=== PATIENT | male | born 1975 | race Caucasian/White ===

== ENCOUNTER 2024-10-14 22:04 | Emergency (ER) | payer OTHER ==
[~2024-10-14] VITALS: Ht 170.2 cm; Wt 87.0 kg
[2024-10-14 22:38] VITALS: TEMP 36.7; O2SAT 99
[2024-10-14 23:11] LABS: BASOPHILS % 2.3 % (0.0-2.0); EOSINOPHILS % 2.9 % (0.0-5.0); HEMATOCRIT. 42.4 % (42.0-52.0); HEMOGLOBIN. 14.4 g/dL (14.0-18.0); LYMPHOCYTES % 49.4 % (20.0-50.0); MEAN PLATELET VOLUME 7.9 fl (7.4-10.4); MONOCYTES % 8.6 % (2.0-8.0); NEUTROPHILS % 36.8 % (40.0-76.0); PLATELET 194 x1000/uL (130-400); RED BLOOD CELL COUNT 4.69 mill/uL (4.7-6.1); RED CELL DISTRIBUTION WIDTH 14.2 % (11.6-14.6)
[2024-10-14 23:25] LABS: CREATININE 0.9 mg/dL (0.6-1.3); ETHANOL BLOOD 270 mg/dL (<10); UREA NITROGEN BLOOD 10 mg/dL (9-23)
[2024-10-14 23:26] LABS: ASPARTATE AMINOTRANSFERASE 70 IU/L (<34); TROPONIN I HIGH SENSITIVITY < 4 ng/L (3.0-53)
[2024-10-14 23:27] LABS: BILIRUBIN DIRECT 0.2 mg/dL (<=3.0); BILIRUBIN TOTAL 0.4 mg/dL (0.1-1.0); PROTEIN TOTAL 6.6 g/dL (6.0-8.3)
[2024-10-14 23:37] LABS: INR 0.9
[2024-10-15] MEDS: CHLORDIAZEPOXIDE 25MG CAPSULE PO ONE (00:13)
[2024-10-15 00:35] LABS: CLARITY URINE CLEAR (CLEAR); COLOR URINE YELLOW (YELLOW); GLUCOSE URINE NEGATIVE (NEGATIVE); KETONES URINE NEGATIVE (NEGATIVE); LEUKOCYTE ESTERASE URINE NEGATIVE (NEGATIVE); NITRITE URINE NEGATIVE (NEGATIVE); OCCULT BLOOD URINE NEGATIVE (NEGATIVE); PH URINE 6.0 (4.5-8.0); PROTEIN URINE NEGATIVE (NEGATIVE); SPECIFIC GRAVITY URINE 1.005 (1.005-1.030); UROBILINOGEN URINE 0.2 E.U./dL (0.2-1.0)
[2024-10-15 00:46] LABS: *AMPHETAMINES SCREEN URINE NEGATIVE (NEGATIVE); *BENZODIAZEPINES SCREEN URINE NEGATIVE (NEGATIVE)
[2024-10-15 00:47] LABS: *BARBITURATES SCREEN URINE NEGATIVE (NEGATIVE); *COCAINE SCREEN URINE NEGATIVE (NEGATIVE); CANNABINOID URINE SCREEN NEGATIVE (NEGATIVE); ECSTASY MDMA SCREEN URINE NEGATIVE (NEGATIVE); METHADONE URINE SCREEN NEGATIVE (NEGATIVE); OPIATES URINE SCREEN NEGATIVE (NEGATIVE); PHENCYCLIDINE URINE SCREEN NEGATIVE (NEGATIVE)
[2024-10-15 01:33] VITALS: BP 123/69; PULSE 79; RESP 12; O2SAT 97
== END 2024-10-15 01:56 | disposition home or self-care (01) ==
LOC: ER 22:04
DX: F10.229 Alcohol dependence with intoxication, unspecified (principal); F17.200 Nicotine dependence, unspecified, uncomplicated; Z79.899 Other long term (current) drug therapy; Y90.9 Presence of alcohol in blood, level not specified
CPT/HCPCS: 80076; 80048; 80320; 82140; 83690; 83735; 85025; 85610; 85730; 86850; 86900; 86901; 84484; 36415; 99283; 80305; 81003; Z7610 ×3; A4606; G0480

== ENCOUNTER 2024-10-28 19:06 | Emergency (ER) | payer OTHER ==
[~2024-10-28] VITALS: Ht 170.2 cm; Wt 86.0 kg
[2024-10-28 19:09] VITALS: O2SAT 99
[2024-10-28] MEDS: HYDROCODONE/ACETAMINOPHEN 5/325MG TABLET PO ONE (20:07)
[2024-10-28 20:34] LABS: BASOPHILS % 0.9 % (0.0-2.0); EOSINOPHILS % 0.7 % (0.0-5.0); HEMATOCRIT. 41.9 % (42.0-52.0); HEMOGLOBIN. 14.4 g/dL (14.0-18.0); LYMPHOCYTES % 19.6 % (20.0-50.0); MEAN PLATELET VOLUME 7.6 fl (7.4-10.4); MONOCYTES % 11.7 % (2.0-8.0); NEUTROPHILS % 67.1 % (40.0-76.0); PLATELET 205 x1000/uL (130-400); RED BLOOD CELL COUNT 4.61 mill/uL (4.7-6.1); RED CELL DISTRIBUTION WIDTH 14.8 % (11.6-14.6)
[2024-10-28 20:48] LABS: CREATININE 1.0 mg/dL (0.6-1.3); UREA NITROGEN BLOOD 19 mg/dL (9-23)
[2024-10-28 20:50] LABS: ASPARTATE AMINOTRANSFERASE 83 IU/L (<34); BILIRUBIN DIRECT 0.1 mg/dL (<=3.0); BILIRUBIN TOTAL 0.6 mg/dL (0.1-1.0); PROTEIN TOTAL 6.6 g/dL (6.0-8.3)
[2024-10-28] MEDS: IOHEXOL-300 100 ML BOTTLE ONE (23:21)
[2024-10-28] MEDS ORDERED: IBUP-2030 MT (23:38)
[2024-10-29 00:34] VITALS: BP 135/85; PULSE 65; RESP 15; TEMP 36.8; O2SAT 96
== END 2024-10-29 00:34 | disposition home or self-care (01) ==
LOC: ER 19:06
DX: R10.9 Unspecified abdominal pain (principal); Y08.89XA Assault by other specified means, initial encounter; Y93.89 Activity, other specified; Y92.89 Other specified places as the place of occurrence of the external cause; Y99.8 Other external cause status
CPT/HCPCS: 99285; 71260; 80076; 80048; 85025; 36415; 74177; Q9967